=== PATIENT | male | born 1960 | race Caucasian/White ===

== ENCOUNTER 2021-04-05 18:15 | Inpatient (IN) | payer OTHER, SELFPAY ==
[2021-04-05] VITALS (15 sets, daily range): BP systolic 126–193; BP diastolic 79–109; PULSE 53–63; RESP 15–22; TEMP 36.3–36.7; O2SAT 89–98; BMI 26.6; BMI 28.6
--- NOTE | 2021-04-05 18:41 | ECG_ITS ---
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 Measurements Intervals [place] Rate: 62 P: 60 UT: 156 QRS: 2 QRSD: 102 T: 78 QT: 413 QTc: 420 Interpretive Statements SINUS RHYTHM LOW QRS VOLTAGE IN PRECORDIAL LEADS [QRS DEFLECTION < 1.0 mV IN CHEST LEADS] ANTERIOR MYOCARDIAL INFARCTION [40+ ms Q WAVE AND/OR ST/T ABNORMALITY IN V3/V4], POSSIBLY ACUTE ST ELEVATION, CONSIDER LATERAL INJURY [MARKED ST ELEVATION W/O NORMALLY INFLECTED T WAVE IN I/aVL/V5/V6] ACUTE [place] No previous ECG available for comparison Electronically Signed On 04-08-2021 9:08:02 CDT by Meggan Auguste M.D. [id number]
--- NOTE | 2021-04-05 18:41 | XRR_ITS ---
PROCEDURE INFORMATION: Exam: XR Chest Exam date and time: 04/05/2021 6:41 PM Age: 61 years old Clinical indication: Condition or disease; Other: Nstemi TECHNIQUE: Imaging protocol: XR of the chest. Views: 1 view. COMPARISON: No relevant prior studies available. FINDINGS: Lungs: Lungs are clear. Pleural spaces: There is no pleural effusion or pneumothorax. Heart/Mediastinum: Cardiomediastinal contours are unremarkable. There are calcified lymph nodes in the upper mediastinum. Bones/joints: Bones are unremarkable. XR/XR chest 1V portable [id number] IMPRESSION: No acute findings.
--- NOTE | 2021-04-05 18:44 | ED_ITS ---
HPI - Chest Pain General: Chief Complaint: Chest Pain Stated Complaint: CP/high BP Time Seen by Provider: 04/05/21 18:43 Source: patient Mode of arrival: ambulatory Limitations: no limitations History of Present Illness: HPI narrative: 61-year-old male who presents here with chest pain he states it started 2 hours ago. He states that the pain is a pressure type pain right today 3 out of 10 currently states it was an 8 out of 10 earlier. No history of heart disease. Does have a history of smoking high blood pressure and high cholesterol. Denies any radiation of his pain. Denies any nausea or vomiting. He states he was diaphoretic earlier. MD complaint: chest pain Associated symptoms: Deny abdominal pain, dyspnea, fever(s), nausea or vomiting Review of Systems Const: Denies: fever(s), chills, body aches or change in appetite Eyes: Denies: blurry vision or eye discomfort ENMT: Denies: throat pain or dental pain Card: Reports: chest pain Resp: Denies: dyspnea GI: Denies: abdominal pain, nausea, vomiting or diarrhea : Denies: dysuria Musc: Denies: neck pain or back pain Skin/Breast: Denies: rash Neuro: Denies: headache(s) Psych: Denies: depression Crispin/Lymph: Denies: easy bruising All/Imm: Denies: urticaria Physical Exam Const: COMMON NORMALS: no acute distress, patient oriented x3 and healthy appearing HENMT: COMMON NORMALS: normocephalic and atraumatic HEAD & SCALP: normocephalic and atraumatic Eye: COMMON NORMALS: Equal, round and reactive pupils present and EOMs intact bilaterally PUPIL: Yes Equal, round and reactive pupils present Neck/C-Spine: COMMON NORMALS: full ROM and supple Chest: COMMONS NORMALS: normal inspection of the chest and normal palpation of entire chest wall Resp: COMMON NORMALS: normal respiratory effort, No retractions, No use of accessory muscles and clear to auscultation bilaterally AUSCULTATION: clear to auscultation bilaterally Cardio: COMMON NORMALS: regular rate, regular rhythm and No murmurs present (Cardio) RATE: regular rate RHYTHM: regular rhythm GI: COMMON NORMALS: Normal to inspection, nondistended, normoactive bowel sounds present, Soft to palpation, non-tender and no masses PALPATION: Yes Soft to palpation Extremity: COMMON NORMALS: normal to inspection and full ROM Neuro: COMMON NORMALS: patient oriented x3, moves all extremities and no focal motor deficits Psych: COMMON NORMALS: mental status grossly normal, Normal thought process present and cooperative THOUGHT PROCESS: Normal thought process present Skin: COMMON NORMALS: no rashes or lesions noted and no wounds GENERAL SKIN EXAM: no rashes or lesions noted Course Vital Signs: Vital signs: Vital Signs Temperature 98.1 F 04/05/21 18:24 Pulse Rate 61 04/05/21 19:03 Respiratory Rate 22 H 04/05/21 19:03 Blood Pressure 159/95 04/05/21 19:03 Pulse Oximetry 98 04/05/21 19:03 MDM - Chest Pain MDM Narrative: Medical decision making narrative: Patient presents here with an ST elevation PA. Spoke to Dr. Garcia he does come in and take patient to the Account Development Associate. Patient's pain here is improving. His vital signs are stable. Lab Data: Labs: Lab Results 04/05/21 Range/Units 18:43 WBC 10.6 H (4.0-10.0) 10^3/ uL RBC 4.93 (4.1-5.3) 10^6/u L Hgb 14.7 (11.7-16.6) g/dL Hct 45.5 (42.0-52.0) % MCV 92.3 (80-94) fl MCH 29.8 (28.0-34.0) pg MCHC 32.3 (30.0-36.0) g/dL RDW 12.1 (12.1-15.1) % Plt Count 290 (130-400) 10^3/c mm MPV 9.9 (7.4-10.4) fL Neut % (Auto) 64.7 % Lymph % (Auto) 23.1 % [place] % (Auto) 9.3 % Eos % (Auto) 2.2 % Baso % (Auto) 0.4 % Neut # (Auto) 6.86 (1.8-7.7) 10^3/u L Lymph # (Auto) 2.5 (0.8-4.8) 10^3/u L [place] # (Auto) 1.0 H (0.2-0.9) 10^3/u L Eos # (Auto) 0.2 (0.0-0.8) 10^3/u L Baso # (Auto) 0.0 (0.0-0.1) 10^3/u L Nucleated RBC % (a uto) 0 % Nucleated RBCs # 0.0 /100WBC EKG Data^: EKG 1: Attestation: I personally reviewed and interpreted this EKG as follows: EKG interpretation date: 04/05/21 EKG interpretation time: 16:38 Interpretation: nsr hr [address] elevation in v2-v5 stemi qrs 102 qtc 417 Discharge Plan Discharge Patient Disposition: Admitted As Inpatient Clinical Impression: ST elevation myocardial infarction (STEMI) Qualifiers: Involved coronary artery: unspecified coronary artery Qualified Code(s): I21.3 - ST elevation (STEMI) myocardial infarction of unspecified site Condition: Stable Coding Level of Care Code ED Serials Librarian for José Antonio Fwd Exam Comprehensive
[2021-04-05 18:49] LABS: Basophils % 0.4 %; Eosinophils # 0.2 10^3/uL (0.0-0.8); Eosinophils % 2.2 %; Hematocrit 45.5 % (42.0-52.0); Hemoglobin 14.7 g/dL (11.7-16.6); Lymphocytes # 2.5 10^3/uL (0.8-4.8); Lymphocytes % 23.1 %; Mean Corpuscular HGB Conc 32.3 g/dL (30.0-36.0); Mean Corpuscular Hemoglobin 29.8 pg (28.0-34.0); Mean Corpuscular Volume 92.3 fl (80-94); Mean Platelet Volume 9.9 fL (7.4-10.4); Monocytes % 9.3 %; Neutrophils # 6.86 10^3/uL (1.8-7.7); Neutrophils % 64.7 %; Nucleated Red Blood Cells % 0 %; Platelet Count 290 10^3/cmm (130-400); Red Blood Count 4.93 10^6/uL (4.1-5.3); Red Cell Distribution Width 12.1 % (12.1-15.1); White Blood Count 10.6 10^3/uL (4.0-10.0)
[2021-04-05 19:07] LABS: Troponin(5th) Baseline 27 ng/L (0-15)
--- NOTE | 2021-04-05 19:08 | XACV_ITS ---
Exam Room: 1 Ht: 175 cm Wt: 82 kg BSA: 2.01 m2 Gender: Male : 1960 Exam Priority: Routine Indication(s): - Acute coronary syndrome Procedure(s): Procedure Description: Diagnostic procedure Procedure Description: PCI procedure Procedure Description: Drug Eluting Coronary Stent Procedure Description: PTCA Procedure Description: Coronary Angiography Diagnostic Cath Status: Emergency Diagnostic Findings * Left Main has no disease. * Circumflex has no disease. * Right Coronary Artery has no disease. * Proximal Left Anterior Descending: total occlusion, LEANNA: 0 flow. * Coronary angiography shows left dominance. PCI Status: Emergency PCI Indication: Immediate PCI for STEMI Interventional Findings * Proximal Left Anterior Descendin% stenosis treated with a AB TREK 2.50X12 RX BALLOON, NAZ Titus JOCELYNE 3.5X15 RAMSEY, and MDFran CELESTE EUPHORA RX [id number] BALLOON. 0% residual stenosis, LEANNA: 3 flow. Conclusions 1. There is total occlusion coronary artery disease with one vessel disease. 2. Proximal Left Anterior Descending was treated with a Balloon, Drug Eluting Stent, and Balloon. Recommendations * 1-Return to inpatient for close monitoring and routine cath care 2-Risk factor modification for secondary prevention 3-Statin and aspirin 81 mg life--long, if tolerated 4-Patient was pre-loaded with 600 mg of Plavix, continue Plavix 75mg p.o. daily for at least one year. We will assess at the end of one year again to continue if further or not 5-Continue optimal medical management 6-Follow up with Dr. Vásquez in four weeks and your primary care in 10 days. Pressures Phase:Rest AO : 159 / 80 ( 109 ) @ 6:36:00 PM Clinical Evaluation EBL: 5mL-10mL Procedural Details Procedure Consent Obtained. Pre-Procedure Time Out. Identified patient by full name and date of as verbalized by the patient/guarantor. Does the consent match the physician's order: N/A Emergent; Informed Consent not obtained due to time critical life threat. The risks, benefits, and alternatives of sedation and/or procedure were discussed by physician. The patient agrees to continue. Procedure started. [facility] Clinical Fraility Score: 3: Managing Well. Bed Placement Coordinator Indications: ACS <= 24 hours. Chest Pain Symptom Assessment: Typical Angina Symptoms. Cardiovascular Instability: Yes, if yes, Persistant Ischemic Symptoms. Correct patient, site and procedure confirmed by cath team. Current diagnosis: STEMI. PERRLA. Strong, equal hand metal lather bilaterally. Lungs clear x 5 lobes. IV Site on Arrival: 18 gauge in the left anticubital. IV Site on Arrival: 20 gauge in the right anticubital. IV Fluids: 0.9% NaCl at KVO. 100 mL infused prior to catheterization laboratory technician. Pre Procedural Pulses: right radial was 3+. Oxygen started at 2liters/min via nasal canula. right groin was prepped with chloroprep then draped in the usual sterile fashion. right radial was prepped with chloroprep then draped in the usual sterile fashion. Physician notified. Baseline sample Acquired. HR: 58 BPM. Patient's spouse placed in the radiology waiting room. Equipment: 6F - Radial. Cardiac Cath Pack. ACIST Manifold Kit Model BT 2000. Heparinized Saline (2 units/mL), 1000 mL bag. Francesca Manuel RN circulating with Marcie Robison RN. Physician arrived. Physician scrubbed in. Immediate Pre-Procedure Time Out. Correct Patient: Yes; Correct Procedure: Yes; Correct Site: Yes; Correct Patient Position: Yes; Correct Supplies: Yes; Dried Flammable Prep: Yes; Blood Products Available: N/A;. Lidocaine 1% infiltrated to the right radial. Current Diagnosis : STEMI. Arterial access obtained. PCI Indication: STEMI. 6 tristanian XB 3.5 guide catheter was inserted over the exchange wire. [place] guidewire was advanced through the guide catheter to lesion in the mid LAD. Unable to cross lesion, guidewire removed. Guide catheter out. 6 tristanian JL 3.5 guide catheter was inserted over the exchange wire. [place] guidewire was advanced through the guide catheter to lesion in the mid LAD. Unable to cross lesion, guidewire removed. [place] guidewire was advanced through the guide catheter to lesion in the mid LAD. Inflation number : 1 A AB TREK 2.50X12 RX BALLOON was prepped and advanced across the Prox LAD , then inflated to 12 EHSAN for 0:15 seconds. Balloon out. Inflation Number : 2 A MDT R JOCELYNE 3.5X15 RAMSEY -Lot Number# [id number] was prepped and advanced across the Prox LAD. The stent was deployed at 16 EHSAN for 0:28 seconds. Exp. 08/04/2022. Results checked. Stent balloon out over wire. Inflation number : 3 A MDT NC EUPHORA RX 4.35Q10SL BALLOON was prepped and advanced across the Prox LAD , then inflated to 10 EHSAN for 0:14 seconds. Inflation number: 4 The MDT NC EUPHORA RX [id number] BALLOON was reinflated across the Prox LAD, to 12 EHSAN for 0:18 seconds. Results checked. Balloon and wire out. Guide catheter out over the exchange wire. A 5 tristanian JR4 catheter in over the exchange wire. Multiple views taken of right coronary artery. Catheter removed over the standard wire. ACT drawn. Results 181 seconds. Therapeutic limits - pre-heparin administration 90-150 seconds and monitoring heparin during a vascular procedure >250 seconds. PCI Indication : Immediate PCI for STEMI. A TR Band was successful obtaining hemostatsis at the Right Radial artery insertion site. Post Procedure: Pulses reassessed and unchanged. TR band placed. Hemostasis obtained. PERRLA. Strong, equal hand metal lather bilaterally. No VTE prophylaxis required. Medication's Wasted: Lidocaine 1% = 15 mL. Medication's Wasted: Nitro = 50 mg. Total IV fluids: 63 mL. Post-op diagnosis: Proximal LAD lesion. Complications: none. Estimated blood loss: 5mL-10mL. Procedure completed. Patient transferred by wheelchair to 1st floor. Vital chart was stopped. Access Site Site: Right Radial artery Sheath Size: 6 Fr Hemostasis Method: TR Band Hemostasis Success: Successful Procedure Medications Start: 7:23 PM Stop: 7:23 PM Medication: Versed Amount: 1 mg Route: I.V. Start: 7:23 PM Stop: 7:23 PM Medication: Fentanyl Amount: 50 mcg Route: I.V. Start: 7:25 PM Stop: 7:25 PM Medication: Versed Amount: 1 mg Route: I.V. Start: 7:25 PM Stop: 7:25 PM Medication: Fentanyl Amount: 50 mcg Route: I.V. Start: 7:28 PM Stop: 7:28 PM Medication: Heparin Amount: 4000 units Route: I.V. Start: 7:32 PM Stop: 7:32 PM Medication: Aggrastat 12.5 mg/250 mL Amount: 41 ml Route: I.V. bolus Start: 7:32 PM Stop: 7:32 PM Medication: Aggrastat 12.5 mg/250 mL Amount: 14.8 ml/hr Route: I.V. drip Start: 7:35 PM Stop: 7:35 PM Medication: Versed Amount: 1 mg Route: I.V. Start: 7:59 PM Stop: 7:59 PM Medication: Heparin Amount: 3000 units Route: I.V. I, the attending physician, have reviewed and verified all procedure medications. Yes, all medications given per verbal order History/Risk Factors Hypertension: Yes Dyslipidemia: No Peripheral Arterial Disease (PAD): No Myocardial Infarction (AL): No Obesity: No Renal Disease: No Tobacco Use: Current/Recent(w/in 1 year) Prior Interventions PCI: No CABG: No Valve Surgery: No Report Signatures Finalized by Elidia Vásquez MD on 04/18/2021 10:38 PM
--- NOTE | 2021-04-05 19:17 | PM.HP ---
Providers/Chief Complaint Primary Care Provider: Sid Cartagena DO Chief Complaint: CP/high BP History of Present Illness Tera Chirinos is a 61 year old male past medical history significant for hypertension, continuous tobacco abuse for the last few days been noticing off and on chest pressure upon exertion did not pay much attention. Nearly 2 hours ago he started having constant chest pain not to the extent that he was not able to breathe therefore he decided to come to the ER. Twelve-lead EKG was history of anterolateral ST elevation it is the reason we have been alerted. I saw the patient along our nursing staff in the emergency room he appeared to be stable vital mott slightly bradycardic he was given 600 mg of Plavix and 4000 units of heparin. Patient has been explained in detail all risk benefit and alternative for the procedure including urgent emergent bypass surgery, vascular injury leading to vascular surgery, major minor bleed, stroke, contrast-induced nephropathy, hematoma, infection pseudoaneurysm. He is a good candidate for dual antiplatelet therapy. He denies any history of bleeding disorders. We will proceed with urgent angiogram and PCI if indicated. Review of Systems Const: Denies: fever(s), chills, body aches or change in appetite Eyes: Denies: blurry vision or eye discomfort ENMT: Denies: throat pain or dental pain Card: Reports: chest pain Resp: Denies: dyspnea GI: Denies: abdominal pain, nausea, vomiting or diarrhea : Denies: dysuria Musc: Denies: neck pain or back pain Skin/Breast: Denies: rash Neuro: Denies: headache(s) Psych: Denies: depression Crispin/Lymph: Denies: easy bruising All/Imm: Denies: urticaria Medications/Allergies Home Medications Medication Instructions Recorded Confirmed Last Taken Type Anoro Ellipta See Rx Instructions .ROUTE .COMPLEX 04/05/21 04/05/21 04/05/21 History albuterol sulfate 2 puff INHALATION Q4H PRN 04/05/21 04/05/21 04/05/21 History aspirin 81 mg PO PRN 04/05/21 04/05/21 04/05/21 History sertraline 25 mg PO DAILY 04/05/21 04/05/21 04/05/21 History atorvastatin 80 mg PO BEDTIME #90 tab 04/06/21 Unknown Rx carvedilol [Coreg] 3.125 mg PO BID #60 tab 04/06/21 Unknown Rx clopidogrel 75 mg PO DAILY #90 tab 04/06/21 Unknown Rx furosemide [Lasix] 20 mg PO QAM #30 tab 04/06/21 Unknown Rx lisinopril 2.5 mg PO DAILY #30 tab 04/06/21 Unknown Rx pantoprazole [Protonix] 40 mg PO DAILY #90 tab 04/06/21 Unknown Rx potassium chloride 10 meq PO DAILY #30 tab 04/06/21 Unknown Rx Allergies Allergy/AdvReac Type Severity Reaction Status Date / Time No Known Allergies Allergy Unverified 04/05/21 19:03 PFSH Acute PFSH: Medical History (Updated 04/07/21 @ 20:09 by Elidia Vásquez MD) Hypertension Tobacco abuse Vitals/I&O/Wt Last Vital Signs Temp 98.1 F 04/05/21 18:24 Pulse 61 04/05/21 19:03 Resp 22 H 04/05/21 19:03 BP 159/95 04/05/21 19:03 Pulse Ox 98 04/05/21 19:03 Weight last 48 hrs Weight 180 lb Physical Exam Narrative: EXAM NARRATIVE: GENERAL: Patient is alert, awake and oriented x3. NECK: No jugular vein distension. HEENT: No cyanosis. No icterus. No pallor. HEART: Regular S1 and S2. No murmur, rub or gallop. LUNGS: Clear to auscultate bilaterally. ABDOMEN: Soft, nontender and nondistended. Positive bowel sounds. No guarding, rebound or tenderness. CENTRAL NERVOUS SYSTEM: Grossly nonfocal. EXTREMITIES: Lower extremities without edema bilaterally. Data : 04/06/21 04:25 04/06/21 04:25 A&P Assessment and plan (1) STEMI (ST elevation myocardial infarction): As defined above patient is going through acute coronary syndrome/ST elevation DE at this point we will proceed with coronary angiogram and percutaneous angioplasty if needed. Status: Acute (2) Tobacco abuse: Advised quitting smoking Status: Acute (3) Hypertension: Will optimize medicine Status: Acute Attestations Medical Necessity Statement*: Patient require continuation hospitalization for above defined care Coding Level of Care Code New Pt Acute Cryptographic Clerk for Chg Fwd Patient Type New History Detailed Exam Detailed Medical Decision Making Moderate Complexity Diagnoses STEMI (ST elevation myocardial infarction) I21.3 Tobacco abuse Z72.0 Hypertension I10
[2021-04-05 19:18] LABS: Alanine Aminotransferase 17 U/L (0-41); Albumin Level 4.4 g/dL (3.5-5.2); Alkaline Phosphatase 61 IU/L (40-130); Aspartate Amino Transferase 19 U/L (0-40); Blood Urea Nitrogen 17 mg/dL (8-23); Carbon Dioxide 26 mmol/L (22-29); Chloride 101 mmol/L (98-107); Creatine Phosphokinase 178 U/L (39-308); Creatinine Clr Calc Pharmacy 81.3354; Globulin 2.4 g/dL (1.3-4.6); Glomerular Filtration Rate 75.7 mL/min (90-130); Glucose 103 mg/dL (65-115); Osmolality Calculated 290 mOsm/kg (285-295); Sodium 139 mmol/L (136-145); Total Bilirubin 0.3 mg/dL (0.15-1.2); Total Protein 6.8 g/dL (6.6-8.7)
--- NOTE | 2021-04-05 20:59 | ECG_ITS ---
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 Measurements Intervals [place] Rate: 56 P: 33 MN: 149 QRS: 26 QRSD: 115 T: 89 QT: 468 QTc: 454 Interpretive Statements SINUS BRADYCARDIA WITH OCCASIONAL VENTRICULAR PREMATURE COMPLEXES ANTEROLATERAL MYOCARDIAL INFARCTION , PROBABLY RECENT [40+ ms Q WAVE IN I/aVL/V3-V6] ACUTE MD Compared to ECG 04/05/2021 18:38:29 Ventricular premature complex(es) now present Sinus rhythm no longer present ST (T wave) deviation no longer present Myocardial infarct finding still present Electronically Signed On 04-08-2021 10:42:59 CDT by Meggan Auguste M.D. [id number]
--- NOTE | 2021-04-05 21:14 | PC.NURSE ---
Bedside report from shellfish processing laborer received. Patient is alert and oriented and VSS on room air. TR band to right wrist with 15 mL air. Aggrastat running at 14.8 ml/hr and ordered to shut off at 2130. Patient has ST elevation on monitor. Dr. Fahad caballero. Ordered to get baseline EKG. Patient educated on post-cath activity restrictions and verbalized understanding.
[2021-04-05] MEDS: atorvastatin 40 mg Tablet 80 MG PO (21:35)
--- NOTE | 2021-04-05 23:30 | PC.NURSE ---
Began removing air from TR band at 2130. TR band removed at 2300. Dressing applied. No bleeding or hematoma noted. Radial pulse strong, VSS. Skin color and temp WNL. Aggrastat drip stopped at 2130 per order.
[2021-04-06] VITALS (12 sets, daily range): BP systolic 122–144; BP diastolic 82–90; PULSE 57–72; RESP 14–21; TEMP 36.6–36.7; O2SAT 89–95
--- NOTE | 2021-04-06 00:41 | ECG_ITS ---
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 Measurements Intervals [place] Rate: 61 P: 135 SD: 155 QRS: 179 QRSD: 97 T: 90 QT: 451 QTc: 455 Interpretive Statements ECTOPIC ATRIAL RHYTHM WITH OCCASIONAL VENTRICULAR PREMATURE COMPLEXES ANTEROLATERAL MYOCARDIAL INFARCTION , PROBABLY RECENT [40+ ms Q WAVE IN I/aVL/V3-V6] ACUTE [place] Compared to ECG 04/05/2021 22:14:06 Ectopic atrial rhythm now present Sinus bradycardia no longer present Myocardial infarct finding still present Electronically Signed On 04-08-2021 10:42:46 CDT by Meggan Auguste M.D. [id number]
--- NOTE | 2021-04-06 02:21 | PC.NURSE ---
Patient c/o of leg cramps. Patient states that at home he takes potassium at home for them or eat bananas. Patient given banana per his request.
[2021-04-06] MEDS: HYDROcodone-acetaminophen 5-325 mg Tablet 1 TAB PO (02:33)
[2021-04-06 04:52] LABS: Basophils % 0.2 %; Eosinophils # 0.1 10^3/uL (0.0-0.8); Eosinophils % 0.9 %; Hematocrit 40.6 % (42.0-52.0); Hemoglobin 13.3 g/dL (11.7-16.6); Lymphocytes # 2.1 10^3/uL (0.8-4.8); Lymphocytes % 15.5 %; Mean Corpuscular HGB Conc 32.8 g/dL (30.0-36.0); Mean Corpuscular Hemoglobin 29.9 pg (28.0-34.0); Mean Corpuscular Volume 91.2 fl (80-94); Mean Platelet Volume 10.3 fL (7.4-10.4); Monocytes # 1.2 10^3/uL (0.2-0.9); Monocytes % 8.9 %; Neutrophils # 9.78 10^3/uL (1.8-7.7); Neutrophils % 74.1 %; Nucleated Red Blood Cells % 0 %; Platelet Count 236 10^3/cmm (130-400); Red Blood Count 4.45 10^6/uL (4.1-5.3); Red Cell Distribution Width 12.2 % (12.1-15.1); White Blood Count 13.2 10^3/uL (4.0-10.0)
[2021-04-06 05:14] LABS: Anion Gap 14.9 (5-19); Blood Urea Nitrogen 16 mg/dL (8-23); Calcium 8.4 mg/dL (8.5-10.5); Carbon Dioxide 24 mmol/L (22-29); Chloride 102 mmol/L (98-107); Glomerular Filtration Rate 75.7 mL/min (90-130); Glucose 124 mg/dL (65-115); Osmolality Calculated 287 mOsm/kg (285-295); Potassium 3.9 mmol/L (3.5-5.1); Sodium 137 mmol/L (136-145)
[2021-04-06 06:21] LABS: Troponin T (5th) Once > 10000 ng/L (0-15)
--- NOTE | 2021-04-06 08:53 | PC.CHAP ---
Pastoral Care Encounter/Spiritual Assessment Type of Contact [] Declined uat tester visit [] Patient/Family/Request visit [] Outpatient visit [] Follow-up visit [] Physician referral [] Code/Alert [x] Routine visit [] Staff referral [] Actively dying [] Patient sleeping [] Family support [] [] Out of room [] Palliative care [] [] Receiving care in room [] Pre-surgical visit [] Trauma [] Long length of stay [] ICU visit [] Other: Relational/Emotional Strength [x] Patient feels connected with others/family/visitors/staff [] Distress [] Loneliness/isolation [] Abandonment Spirituality of Patient [x] Person of [place] [x] Attends Christianity of their [place] [x] Believes in Prayer [] Reads Bible or Hinduism materials [] There are Spiritual issues to be addressed Buckshot Swage Operator Interventions [x] Prayer [x] Active listening [x] Non-anxious presence [x] Spiritual/emotional support [] Crisis/trauma care [] Spiritual counseling [] Bereavement support [] Provided bereavement packet [] Provided Bible/devotional materials [] Provided toy/stuffed animal, coloring book to patient or family member [] Provided Communion [] Anointing/Elizabeth [] Salvation [x] Completed spiritual assessment [] Other: Impact on Illness or Injury [] Angry [] Fearful [] Anxious [] Often cries [] Exhaustion [] Unable to work [] Unable to attend gnosticist [] Unable to walk/stand [] Unable to read [] Unable to drive [] Unable to eat/drink [] Unable to sleep [] Unable to be with family [] Patient intubated [] Other: Summary Pt had heart attack yesterday afternoon. Feeling better and waiting to see the doctor this morning to determine treatment course. Time spent with patient 10m
[2021-04-06] MEDS: sertraline 50 mg Tablet 25 MG PO (09:14)
[2021-04-06] MEDS: clopidogrel 75 mg Tablet PO (09:14)
[2021-04-06] MEDS: dilTIAZem ER (24HR) 240 mg Capsule PO (09:14)
[2021-04-06] MEDS: pneumococcal (23 valent) SDV 0.5 mL IM (09:25)
--- NOTE | 2021-04-06 09:30 | P.DS_ITS ---
Discharge Providers Date of Admission: 04/05/21 20:15 Date of Discharge: April 06, 2021 Attending Provider at Admission: Elidia Vásquez MD Attending Provider at Discharge: Elidia Vásquez MD Primary Care Provider: Sid Cartagena DO Reason for Visit 2 Reason for Visit: CP/high BP Hospital Course Hospital Course 61-year-old male presented with ST elevation ID of anterolateral wall of the left ventricle. He was taken to the [facility]. Due to difficult anatomy there was some delay however were able to cross the occluded proximal LAD lesion. It was treated with balloon angioplasty followed by drug-eluting stent postdilated with noncompliant balloon. Excellent angiographic result with LEANNA-3 flow was achieved. Rest of the vessel did not show any significant stenosis. Postoperative care remains uncomplicated. Medicine was optimized left ventricle ejection fraction by echocardiogram was moderately reduced 40%. Today patient say he would like to go home and would not like to stay in the hospital because of the Covid patient. Since he is doing fine from cardiovascular perspective right wrist wound looks good we will discharge him. Advised to continue taking Plavix for at least 1 year for the plan will be advised after that. Advised to quit smoking. Physical Exam Narrative: EXAM NARRATIVE: GENERAL: Patient is alert, awake and oriented x3. NECK: No jugular vein distension. HEENT: No cyanosis. No icterus. No pallor. HEART: Regular S1 and S2. No murmur, rub or gallop. LUNGS: Clear to auscultate bilaterally. ABDOMEN: Soft, nontender and nondistended. Positive bowel sounds. No guarding, rebound or tenderness. CENTRAL NERVOUS SYSTEM: Grossly nonfocal. EXTREMITIES: Lower extremities without edema bilaterally. 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 echo complete * [id number] Routine Ultrasound 04/06/21 20:10 Taken Labs from last 24 hours 04/06/21 04/06/21 04/06/21 04:25 04:25 04:25 WBC 13.2 H RBC 4.45 Hgb 13.3 Hct 40.6 L MCV 91.2 MCH 29.9 MCHC 32.8 RDW 12.2 Plt Count 236 MPV 10.3 Neut % (Auto) 74.1 Lymph % (Auto) 15.5 Latimer % (Auto) 8.9 Eos % (Auto) 0.9 Baso % (Auto) 0.2 Neut # (Auto) 9.78 H Lymph # (Auto) 2.1 Latimer # (Auto) 1.2 H Eos # (Auto) 0.1 Baso # (Auto) 0.0 Nucleated RBC % (a uto) 0 Nucleated RBCs # 0.0 Sodium 137 Potassium 3.9 Chloride 102 Carbon Dioxide 24 Anion Gap 14.9 BUN 16 Creatinine 1.0 GFR Calculation 75.7 L Glucose 124 H Calculated Osmolal ity 287 Calcium 8.4 L Total Bilirubin AST ALT Alkaline Phosphata se Creatine Kinase Troponin T Gen 5 n g/L > 28526 H* Troponin T Baselin e Total Protein Albumin Globulin 04/05/21 04/05/21 04/05/21 18:43 18:43 18:43 WBC 10.6 H RBC 4.93 Hgb 14.7 Hct 45.5 MCV 92.3 MCH 29.8 MCHC 32.3 RDW 12.1 Plt Count 290 MPV 9.9 Neut % (Auto) 64.7 Lymph % (Auto) 23.1 Latimer % (Auto) 9.3 Eos % (Auto) 2.2 Baso % (Auto) 0.4 Neut # (Auto) 6.86 Lymph # (Auto) 2.5 Latimer # (Auto) 1.0 H Eos # (Auto) 0.2 Baso # (Auto) 0.0 Nucleated RBC % (a uto) 0 Nucleated RBCs # 0.0 Sodium 139 Potassium 4.0 Chloride 101 Carbon Dioxide 26 Anion Gap 16.0 BUN 17 Creatinine 1.0 GFR Calculation 75.7 L Glucose 103 Calculated Osmolal ity 290 Calcium 9.0 Total Bilirubin 0.3 AST 19 ALT 17 Alkaline Phosphata se 61 Creatine Kinase 178 Troponin T Gen 5 n g/L Troponin T Baselin e 27 H Total Protein 6.8 Albumin 4.4 Globulin 2.4 Vitals: Last Vital Signs Temp 98.1 F 04/06/21 07:56 Pulse 59 L 04/06/21 07:56 Resp 18 04/06/21 07:56 BP 136/89 04/06/21 07:56 Pulse Ox 93 04/06/21 07:56 Discharge Plan Discharge Patient Disposition: Home Condition: Stable Prescriptions: New atorvastatin 40 mg Tablet 80 mg PO BEDTIME Qty: 90 RF: 4 clopidogrel 75 mg Tablet 75 mg PO DAILY Qty: 90 RF: 3 Coreg 3.125 mg tablet 3.125 mg PO BID Qty: 60 RF: 3 Lasix 20 mg tablet 20 mg PO QAM Qty: 30 RF: 2 potassium chloride 20 mEq tablet extended release 10 meq PO DAILY Qty: 30 RF: 3 Protonix 40 mg tablet,delayed release (DR/EC) 40 mg PO DAILY Qty: 90 RF: 2 lisinopril 2.5 mg tablet 2.5 mg PO DAILY Qty: 30 RF: 3 Continued sertraline 25 mg tablet 25 mg PO DAILY RF: 0 albuterol sulfate 90 mcg/actuation HFA aerosol inhaler 2 puff INHALATION Q4H PRN (Reason: Shortness Of Breath) RF: 0 Anoro Ellipta 62.5-25 mcg/actuation blister with device See Rx Instructions .ROUTE .COMPLEX RF: 0 aspirin 81 mg Tablet,Delayed Release (Dr/Ec) 81 mg PO PRN RF: 0 Discontinued diltiazem HCl 240 mg capsule,extended release 24hr 240 mg PO DAILY RF: 0 Discharge Orders: Discharge Order (Routine); Ordered 04/06/21 Ordered By: Elidia Vásquez Referrals: Elidia Vásquez MD [Physician] - (Please follow-up with Dr. Vásquez on at 3:45P.M. If you have questions or reschedule. Please call ) Sharon Rodríguez FNP [Nurse Practitioner] - (Please follow-up with Sharon Rodríguez on at 12:45P.M. If you have any questions or need to reschedule. Please call ) Sid Cartagena, [Primary Care Provider] - 4-7 days (Please follow-up with Dr. Cartagena on at 1:50P.M. If you have any questions or need to reschedule. Please call ) Discharge Diet: Cardiac, Low Salt and Low Cholesterol Discharge Activity: Increase activity as tolerated Patient Instructions: Lisinopril (By mouth), Furosemide (By mouth), Potassium Chloride (By mouth), Atorvastatin (By mouth), Carvedilol (By mouth), Clopidogrel (By mouth), Pantoprazole (By mouth), Left Heart Catheterization (DC), Coronary Angioplasty (DC), Opioid Safety, Post Angiogram Home Care Instructions Activity Restrictions/Additional Instructions: Follow-up with Sharon Rodríguez in 7 days. Follow-up with Dr. Vásquez in 4 weeks. Return to work will be decided after 7-day visit to Sharon Rodríguez. Most likely return to work will be in 2 weeks. Discharge Attestations Time Spent in Discharge Care*: greater than 30 min Specific Discharge Activities: educating patient Quality Metrics Clinical Quality Measures During this hospital stay, did patient experience: AMI Clinical Trial Participant: No Contraindication to aspirin (AMI): Aspirin given Contraindication to statin: Statin prescribed Coding Level of Care Code Established Pt Acute Chg FW DC note Patient Type Established History Detailed Exam Detailed Medical Decision Making Moderate Complexity
--- NOTE | 2021-04-06 11:05 | PC.NURSE ---
Discharge Note Patient discharged to Home via private vehicle accompanied by spouse. Discharge instructions reviewed with patient and/or product representative. Mobile pharmacy medications and/or prescriptions provided. Belongings/home medications returned.
--- NOTE | 2021-04-06 11:05 | PC.NURSE ---
Discharge Note Patient discharged to [] via [] accompanied by []. 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 Mobile pharmacy medications and/or prescriptions provided. Belongings/home medications returned.
--- NOTE | 2021-04-06 20:10 | USCV_ITS ---
Tera Chirinos Age: 61 Gender: M : 1960 Exam Date: 04/06/2021 07:20 Ordering Phys: Elidia Vásquez MD ([email or web address]) Technologist: Chuck Kelsey Exam Location: [facility] [place] Indication: NSTEMI BP: 134 / 84 HR: 60 Rhythm: Sinus Technical Quality: Good MEASUREMENTS (Male / Female) Normal Values 2D ECHO LV Diastolic Diameter PLAX 3.1 cm 4.2 - 5.9 / 3.9 - 5.3 cm LV Systolic Diameter PLAX 2.3 cm IVS Diastolic Thickness 1.1 cm 0.6 - 1.0 / 0.6 - 0.9 cm IVS Systolic Thickness 1.2 cm LVPW Diastolic Thickness 1.1 cm 0.6 - 1.0 / 0.6 - 0.9 cm LVPW Systolic Thickness 1.5 cm LVOT Diameter 2.1 cm LV Ejection Fraction 2D Teich 53.9 % LV Ejection Fraction MOD 2C 58.3 % LV Ejection Fraction 2C AL 56.9 % LA Diameter 3.1 cm LA Width 3.8 cm LA Height 6.2 cm RA Width 3.5 cm RA Height 5.0 cm DOPPLER AV Peak Velocity 156.0 cm/s LVOT Peak Velocity 117.0 cm/s AV Area Cont Eq vti 3.1 cm squared AV Area Cont Eq pk 2.5 cm squared MV Area PHT 5.0 cm squared Mitral E to A Ratio 0.7 MV E' Velocity 37.5 cm/s Mitral E to MV E' Ratio 11.2 Mitral E to LV E' Lateral Ratio 12.2 Mitral E to LV E' Septal Ratio 10.3 TR Peak Velocity 308.0 cm/s TR Peak Gradient 37.9 mmHg PV Peak Velocity 74.0 cm/s FINDINGS Left Ventricle Normal left ventricular cavity size. Moderately decreased left ventricular systolic function. Left ventricular ejection fraction is estimated at 40 %. There appeared to be mid to distal anterior and apical wall akinesis. Grade I/IV diastolic dysfunction (abnormal relaxation filling pattern), normal to mildly elevated filling pressures. Right Ventricle The right ventricle is normal in size and function. Right Atrium The right atrium is normal in size. Left Atrium The left atrium is normal in size. Mitral Valve Structurally normal mitral valve without significant stenosis or prolapse. There is no mitral regurgitation. Aortic Valve Moderate aortic valve calcification. No aortic valve stenosis. Mild aortic valve regurgitation. Tricuspid Valve Structurally normal tricuspid valve without significant stenosis or regurgitation. Pulmonary artery systolic pressure is normal. Pulmonic Valve Structurally normal pulmonic valve without significant stenosis. There is no pulmonic regurgitation. Pericardium Normal pericardium without effusion. Aorta Normal ascending aorta dimension. CONCLUSIONS 1-Normal left ventricular cavity size. Moderately decreased left ventricular systolic function. Left ventricular ejection fraction is estimated at 40 %. There appeared to be mid to distal anterior and apical wall akinesis. Grade I/IV diastolic dysfunction (abnormal relaxation filling pattern), normal to mildly elevated filling pressures. 2-Moderate aortic valve calcification. No aortic valve stenosis. Mild aortic valve regurgitation. 3-No other significant valve abnormalities. 4-Right atrial pressure is around 5 mm of mercury. 5-There are no prior echocardiogram studies to compare. Elidia Vásquez MD (Electronically Signed) Final Date: 06 April 2021 14:46 S
--- NOTE | 2021-04-07 09:00 | PC.SOCIAL ---
discharge follow up call made. patient picked up new medications from the pharmacy, taking as prescribed. patient aware of all follow up appointments.
--- NOTE | 2021-04-09 18:05 | PC.RESP ---
SMOKING CESSATION INFORMATION SENT TO PATIENT.
== END 2021-04-06 11:05 | disposition home or self-care (01) | DRG 247 ==
LOC: ER 18:46 → CCL 19:43 → CSU 20:23
PROVIDERS: Family Medicine; Admitting Provider Internal Medicine Cardiovascular Disease; Emergency Provider Emergency Medicine; PCP Electrodiagnostic Medicine; Visit Provider Internal Medicine Cardiovascular Disease
PROC: 027034Z Dilation of Coronary Artery, One Artery with Drug-eluting Intraluminal Device, Percutaneous Approach (ICD-10-PCS; principal; 2021-04-05 19:00)
PROC: 027034Z Dilation of Coronary Artery, One Artery with Drug-eluting Intraluminal Device, Percutaneous Approach (ICD-10-PCS; 2021-04-05 19:00)
DX: I21.09 ST elevation (STEMI) myocardial infarction involving other coronary artery of anterior wall (principal); I10 Essential (primary) hypertension; Z72.0 Tobacco use
CPT/HCPCS: 36415; 71045; 80048; 80053; 82550; 84484; 85025; 85347; 90471; 90732; 93005; 93306; 93454; 96361; 96365; 96375; 99285; C1725; C1769; C1874; C1887; C1894; C9600; J1644; J2250; J3010; J3246; J3490; Q9967

== ENCOUNTER → 2021-04-13 14:15 | Outpatient (BNVA) | payer OTHER, SELFPAY | PROVIDERS: PCP Electrodiagnostic Medicine; Visit Provider Nurse Practitioner Family | DX: I25.119 Atherosclerotic heart disease of native coronary artery with unspecified angina pectoris (principal); I73.9 Peripheral vascular disease, unspecified; Z09 Encounter for follow-up examination after completed treatment for conditions other than malignant neoplasm; I10 Essential (primary) hypertension; F17.200 Nicotine dependence, unspecified, uncomplicated | CPT/HCPCS: 80048; 85025 ==

== ENCOUNTER → 2021-05-18 13:07 | Outpatient (BNVA) | payer OTHER, SELFPAY | PROVIDERS: PCP Electrodiagnostic Medicine; Visit Provider Internal Medicine Cardiovascular Disease | DX: I25.119 Atherosclerotic heart disease of native coronary artery with unspecified angina pectoris (principal) | CPT/HCPCS: 80048; 83880; 85025 ==

== ENCOUNTER 2021-05-20 08:50 | Outpatient (CLI) | payer OTHER, SELFPAY ==
--- NOTE | 2021-05-20 09:30 | USCV_ITS ---
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 Near normal PVR waveforms CONCLUSIONS Features of mild peripheral arterial disease bilaterally possibly involving the distal vessels. Dr Rosemary Kline MD [facility] (Electronically Signed) Final Date: 20 May 2021 22:57 S
== END 2021-05-20 08:51 | disposition home or self-care (01) ==
LOC: RAD 08:51
PROVIDERS: PCP Electrodiagnostic Medicine; Visit Provider Nurse Practitioner Family
DX: I25.119 Atherosclerotic heart disease of native coronary artery with unspecified angina pectoris (principal); I73.9 Peripheral vascular disease, unspecified
CPT/HCPCS: 93923

== ENCOUNTER → 2021-06-29 13:45 | Outpatient (BNVA) | payer OTHER, SELFPAY | PROVIDERS: PCP Electrodiagnostic Medicine; Visit Provider Internal Medicine Cardiovascular Disease | DX: I25.119 Atherosclerotic heart disease of native coronary artery with unspecified angina pectoris (principal); I50.23 Acute on chronic systolic (congestive) heart failure; I25.10 Atherosclerotic heart disease of native coronary artery without angina pectoris; I11.0 Hypertensive heart disease with heart failure | CPT/HCPCS: 80048; 85025 ==

== ENCOUNTER → 2021-07-15 08:11 | Outpatient (BNVA) | payer OTHER, SELFPAY | PROVIDERS: PCP Electrodiagnostic Medicine; Visit Provider Internal Medicine Critical Care Medicine | DX: Z20.822 Contact with and (suspected) exposure to COVID-19 (principal); J44.9 Chronic obstructive pulmonary disease, unspecified | CPT/HCPCS: 87635 ==

== ENCOUNTER 2021-07-20 14:17 | Outpatient (CLI) | payer OTHER, SELFPAY ==
--- NOTE | 2021-07-20 15:00 | CT_ITS ---
WS: [id number] LDCT LUNG CANCER SCREENING TECHNIQUE: Noncontrast CT of the chest with coronal and sagittal reformatted images. CLINICAL INFORMATION: Lung cancer screeni COMPARISON: None. DLP: 57.35 mGy.cm DIvol: 1.[address] scans at [facility] use at least one of these dose optimization techniques: automat ed exposure control; mA and/or kV adjustment per patient size (includes targeted exams where dose is matched to clinical indication); or iterative reconstruction. FINDINGS: Moderate chronic emphysematous changes. No focal pneumonia or pleural fluid. No suspicious pulmonary parenchymal abnormalities. A few calcified granulomas. Calcified mediastinal and hilar lymph nodes. C oronary calcification. Coronary stent. No axillary lymphadenopathy. Adrenal glands are normal. Cholelithiasis. Mild thoracic kyphosis. Hypertrophic changes thoracic spin e. CT/CT lung screening [id number] IMPRESSION: LUNG-RADS: 1-Negative FOLLOW UP: 12 Month: Continue annual screening with LDCT
== END 2021-07-20 14:18 | disposition home or self-care (01) ==
LOC: RAD 14:18
PROVIDERS: PCP Electrodiagnostic Medicine; Visit Provider Internal Medicine Critical Care Medicine
DX: Z12.2 Encounter for screening for malignant neoplasm of respiratory organs (principal); Z72.0 Tobacco use
CPT/HCPCS: 71271

== ENCOUNTER 2021-07-21 12:33 | Outpatient (CLI) | payer OTHER, SELFPAY ==
--- NOTE | 2021-07-21 13:38 | PFTS_ITS ---
Date of Study:07/21/21 Date of Dictation: MECHANICS: Forced vital capacity (FVC) is normal. Forced expiratory volume in one second (FEV1) is reduced. FEV1/FVC is reduced. FLOW VOLUME LOOP: Reduced flow at all lung volumes with scooping. LUNG VOLUMES: Total lung capacity (TLC) is normal. Residual volume (RV) is normal. DIFFUSING CAPACITY FOR CARBON MONOXIDE: Mildly reduced. INTERPRETATION: The postbronchodilator spirometry is consistent with moderate airflow obstruction. There is no significant postbronchodilator response. Lung volumes are normal. Gas exchange (DLCO) is mildly reduced. MTDD
== END 2021-07-21 12:34 | disposition home or self-care (01) ==
LOC: RT 12:35
PROVIDERS: PCP Electrodiagnostic Medicine; Visit Provider Internal Medicine Critical Care Medicine
DX: J44.9 Chronic obstructive pulmonary disease, unspecified (principal)
CPT/HCPCS: 94060; 94726; 94729

== ENCOUNTER → 2021-12-23 10:55 | Outpatient (BNVA) | payer OTHER, SELFPAY | PROVIDERS: PCP Electrodiagnostic Medicine; Visit Provider Internal Medicine Cardiovascular Disease | DX: I25.119 Atherosclerotic heart disease of native coronary artery with unspecified angina pectoris (principal); I50.23 Acute on chronic systolic (congestive) heart failure; R06.02 Shortness of breath; I25.5 Ischemic cardiomyopathy; I42.0 Dilated cardiomyopathy; I50.33 Acute on chronic diastolic (congestive) heart failure; I50.20 Unspecified systolic (congestive) heart failure | CPT/HCPCS: 80048; 83880 ==

== ENCOUNTER 2022-02-04 13:44 | Outpatient (CLI) | payer OTHER, SELFPAY ==
--- NOTE | 2022-02-04 14:15 | USCV_ITS ---
Tera Chirinos Age: 61 Gender: M : 1960 Exam Date: 02/04/2022 14:07 Ordering Phys: Rosemary Kline MD ([email or web address]) Technologist: LAMINE [place] [facility] [place]ication: CARDIOMYOPATHY/ CHRONIC HEART FAILURE BP: 148 / 88 HR: 56 Rhythm: Sinus Technical Quality: Adequate MEASUREMENTS (Male / Female) Normal Values 2D ECHO LV Diastolic Diameter PLAX 5.0 cm 4.2 - 5.9 / 3.9 - 5.3 cm LV Systolic Diameter PLAX 3.5 cm IVS Diastolic Thickness 1.5 cm 0.6 - 1.0 / 0.6 - 0.9 cm IVS Systolic Thickness 1.7 cm LVPW Diastolic Thickness 1.2 cm 0.6 - 1.0 / 0.6 - 0.9 cm LVPW Systolic Thickness 1.4 cm LVOT Diameter 2.0 cm LV Ejection Fraction 2D Teich 55.7 % LV Ejection Fraction MOD 2C 43.3 % LV Ejection Fraction 2C AL 45.5 % LA Diameter 3.6 cm LA Width 3.4 cm LA Height 4.7 cm RA Width 3.0 cm RA Height 4.8 cm Aorta at Sinotubular Diameter 2.7 cm IVC Diameter 1.5 cm M-MODE Aortic Annulus Diameter 2.9 cm LA Ao Ratio MM 1.2 MV E Point Septal Separation 0.5 cm DOPPLER AV Peak Velocity 157.0 cm/s LVOT Peak Velocity 117.0 cm/s AV Area Cont Eq vti 2.4 cm squared AV Area Cont Eq pk 2.4 cm squared MV Peak Velocity 110.0 cm/s MV Area PHT 3.1 cm squared Mitral E to A Ratio 0.7 MV E' Velocity 33.0 cm/s Mitral E to MV E' Ratio 12.5 Mitral E to LV E' Lateral Ratio 13.4 Mitral E to LV E' Septal Ratio 11.8 TR Peak Velocity 339.9 cm/s TR Peak Gradient 46.2 mmHg TR Mean Velocity 319.3 cm/s TR Mean Gradient 40.1 mmHg TR Velocity Time Integral 134.3 cm TV Peak E Velocity 60.0 cm/s Right Atrial Pressure 3.0 mmHg Pulmonary Artery Systolic Pressu 49.2 mmHg PV Peak Velocity 108.0 cm/s RV Acceleration Time 0.1 s RV Ejection Time 0.3 s RV AcT/ET 0.2 FINDINGS Left Ventricle Normal LV size with reduced ejection fraction of 45%. Diffuse hypokinesis of the LV apex. Mild concentric left ventricular hypertrophy.Grade I/IV diastolic dysfunction (abnormal relaxation filling pattern), normal to mildly elevated filling pressures. Right Ventricle The right ventricle is normal in size and function. Right Atrium The right atrium is normal in size. Left Atrium The left atrium is normal in size. Mitral Valve Trace to mild mitral valve regurgitation. Aortic Valve Thickened aortic valve. Tricuspid Valve Mild tricuspid valve regurgitation. Pulmonic Valve Pulmonic valve not well visualized. Pericardium Normal pericardium without effusion. Aorta Normal aortic annulus size. IVC Normal inferior vena cava. CONCLUSIONS Normal LV size with reduced ejection fraction of 45%. Diffuse hypokinesis of the LV apex. Mild concentric left ventricular hypertrophy.Grade I/IV diastolic dysfunction (abnormal relaxation filling pattern), normal to mildly elevated filling pressures. Trace to mild mitral valve regurgitation. Thickened aortic valve. Mild tricuspid valve regurgitation. Estimated pulmonary artery peak systolic pressure 49 mmHg There is no pericardial effusion. There are no intracardiac masses. Compared to the study from 04/06/2021, there may not be a significant change Dr Rosemary Kline MD [facility] (Electronically Signed) Final Date: 08 February 2022 19:18 S
== END 2022-02-04 13:45 | disposition home or self-care (01) ==
LOC: RAD 13:45
PROVIDERS: PCP Electrodiagnostic Medicine; Visit Provider Internal Medicine Cardiovascular Disease
DX: I25.5 Ischemic cardiomyopathy (principal); I42.0 Dilated cardiomyopathy; R06.00 Dyspnea, unspecified; I08.3 Combined rheumatic disorders of mitral, aortic and tricuspid valves
CPT/HCPCS: 93306

== ENCOUNTER → 2022-03-19 17:26 | Outpatient (BNVA) | payer OTHER, SELFPAY | PROVIDERS: PCP Electrodiagnostic Medicine; Visit Provider Registered Nurse Neonatal Intensive Care | DX: Z20.822 Contact with and (suspected) exposure to COVID-19 (principal) | CPT/HCPCS: 87426 ==

== ENCOUNTER 2023-01-06 08:53 | Outpatient (CLI) | payer MEDICAID, SELFPAY ==
--- NOTE | 2023-01-06 09:30 | CT_ITS ---
WS: [id number] LDCT LUNG CANCER SCREENING TECHNIQUE: Noncontrast CT of the chest with coronal and sagittal reformatted images. CLINICAL INFORMATION: screen COMPARISON: 2020 DLP: 73.70 mGy.cm DIvol: Mean CTDIvol: 1.40 (mGy) All CT scans at [facility] use at least one of these dose optimization techniques: automat ed exposure control; mA and/or kV adjustment per patient size (includes targeted exams where dose is matched to clinical indication); or iterative reconstruction. FINDINGS:Tiny nodule RIGHT lower lobe measuring 3 mm is unchanged. A few calcified granulomas. Tiny n odule LEFT lower lobe. Tiny 2 mm nodule RIGHT lung apex. No suspicious pulmonary opacities. Moderate chronic emphysematous changes. No focal pneumonia or pleural fluid. Calcified mediastinal an d hilar lymph nodes. Coronary calcification. Coronary stent. No axillary lymphadenopathy. Cholelithia sis better visualized on prior study.Tiny LEFT adrenal adenoma. RIGHT adrenal gland is normal. Mild thoracic kyphosis. Hypertrophic changes thoracic spine. CT/CT lung screening [id number] IMPRESSION: LUNG-RADS: 2-Benign Appearance or Behavior FOLLOW UP: 12 Month: Continue annual screening with LDCT
== END 2023-01-06 08:54 | disposition home or self-care (01) ==
PROVIDERS: PCP Family Medicine; Visit Provider Family Medicine
DX: Z12.2 Encounter for screening for malignant neoplasm of respiratory organs (principal); F17.219 Nicotine dependence, cigarettes, with unspecified nicotine-induced disorders
CPT/HCPCS: 71271; 80053; 80061; 84153; 84443; 85025

== ENCOUNTER → 2023-07-04 16:11 | Outpatient (BNVA) | payer MEDICAID, SELFPAY | PROVIDERS: PCP Family Medicine; Visit Provider Internal Medicine Cardiovascular Disease | DX: R07.9 Chest pain, unspecified (principal); I25.5 Ischemic cardiomyopathy; I42.0 Dilated cardiomyopathy | CPT/HCPCS: 93005 ==

== ENCOUNTER → 2024-01-03 10:22 | Outpatient (BNVA) | payer MEDICAID, SELFPAY | PROVIDERS: PCP Family Medicine Adult Medicine; Visit Provider Internal Medicine Cardiovascular Disease | DX: I25.5 Ischemic cardiomyopathy (principal); R06.02 Shortness of breath; I42.0 Dilated cardiomyopathy; I25.10 Atherosclerotic heart disease of native coronary artery without angina pectoris | CPT/HCPCS: 36415; 80048; 83880; 93005 ==

== ENCOUNTER 2024-01-15 13:34 | Outpatient (CLI) | payer MEDICAID, SELFPAY ==
--- NOTE | 2024-01-15 14:15 | USCV_ITS ---
Tera Chirinos Age: 63 Gender: M : 1960 Exam Date: 01/15/2024 13:50 Ordering Phys: Rosemary Kline MD ([email or web address]) Technologist: Exam Location: [facility] [place] Indication: hx of cad cardiac infarction BP: 120 / 74 HR: 436 Rhythm: Sinus Technical Quality: Adequate MEASUREMENTS (Male / Female) Normal Values 2D ECHO LV Diastolic Diameter PLAX 5.6 cm 4.2 - 5.9 / 3.9 - 5.3 cm IVS Diastolic Thickness 1.1 cm 0.6 - 1.0 / 0.6 - 0.9 cm IVS Systolic Thickness 1.7 cm LVPW Diastolic Thickness 1.1 cm 0.6 - 1.0 / 0.6 - 0.9 cm LVPW Systolic Thickness 1.7 cm LVOT Diameter 2.0 cm LV Ejection Fraction 2D Teich 57.6 % LV Ejection Fraction MOD 2C 64.8 % LV Ejection Fraction 2C AL 65.6 % LA Diameter 3.5 cm RA Systolic Volume 4C AL 24.3 ml RA Systolic Volume 4C MOD 25.2 ml Aorta at Sinotubular Diameter 2.8 cm M-MODE LA Ao Ratio MM 0.8 AV Cusp Separation MM 1.9 cm DOPPLER AV Peak Velocity 101.0 cm/s LVOT Peak Velocity 104.0 cm/s AV Area Cont Eq vti 4.1 cm squared AV Area Cont Eq pk 3.3 cm squared MV Peak Velocity 104.0 cm/s TV Peak Velocity 204.0 cm/s TR Peak Velocity 257.0 cm/s TR Peak Gradient 26.4 mmHg TV Peak E Velocity 96.0 cm/s Right Atrial Pressure 3.0 mmHg Pulmonary Artery Systolic Pressu 29.4 mmHg PV Peak Velocity 120.0 cm/s FINDINGS Left Ventricle Moderate concentric left hypertrophy with some evidence of mid cavity contraction. Hypokinetic apical septal segment. Ejection fraction of 67% Right Ventricle The right ventricle is normal in size and function. Right Atrium The right atrium is normal in size. Left Atrium Mildly increased left atrial size. Mitral Valve Mild mitral valve regurgitation. Aortic Valve Minimally thickened aortic valve Tricuspid Valve Mild tricuspid valve regurgitation. Estimated pulmonary artery peak systolic pressure 30 mmHg Pulmonic Valve No gross abnormalities noted Pericardium No pericardial effusion. Aorta Normal aortic annulus size. IVC Inferior vena cava not visualized. CONCLUSIONS Moderate concentric left hypertrophy with some evidence of mid cavity contraction. Hypokinetic apical septal segment. Ejection fraction of 67%. Mildly increased left atrial size. Mild mitral valve regurgitation. Mild tricuspid valve regurgitation. Estimated pulmonary artery peak systolic pressure 30 mmHg. There is no pericardial effusion. There are no intracardiac masses. Compared to the study from 02/04/2022, there is significant improvement in the LV ejection fraction from 45% to 67% Dr Rosemary Kline MD [facility] (Electronically Signed) Final Date: 16 January 2024 09:38 S
== END 2024-01-15 13:35 | disposition home or self-care (01) ==
LOC: RAD 13:34
PROVIDERS: PCP Family Medicine Adult Medicine; Visit Provider Internal Medicine Cardiovascular Disease
DX: I25.5 Ischemic cardiomyopathy (principal); I42.0 Dilated cardiomyopathy; I25.10 Atherosclerotic heart disease of native coronary artery without angina pectoris; I42.2 Other hypertrophic cardiomyopathy
CPT/HCPCS: 93306

== ENCOUNTER → 2024-11-28 11:19 | Outpatient (BNVA) | payer BC, MEDICARE, SELFPAY | PROVIDERS: PCP Family Medicine; Visit Provider Family Medicine | DX: I10 Essential (primary) hypertension (principal); I25.5 Ischemic cardiomyopathy; I42.0 Dilated cardiomyopathy; I25.119 Atherosclerotic heart disease of native coronary artery with unspecified angina pectoris; E78.5 Hyperlipidemia, unspecified; K21.9 Gastro-esophageal reflux disease without esophagitis; R25.2 Cramp and spasm; J43.1 Panlobular emphysema; Z12.5 Encounter for screening for malignant neoplasm of prostate | CPT/HCPCS: 80053; 80061; 84443; 85025; G0103 ==

== ENCOUNTER 2024-12-11 08:28 | Outpatient (CLI) | payer MEDICARE, SELFPAY ==
--- NOTE | 2024-12-11 09:00 | CT_ITS ---
WS: [id number] LDCT LUNG CANCER SCREENING HISTORY: smoker; 56pk year; screening TECHNIQUE: Axial imaging performed from the apices to 1 cm below the costophrenic angles. Coronal and sagittal reformats are submitted with axial MIP series. All CT scans at [facility] use at least one of these dose optimization techniques: automated exposure control; mA and/or kV adjustment per patient size (includes targeted exams where dose is matched to clinical indication); or iterative reconstruction. DLP: 73.01 mGy.cm DIvol: Mean CTDIvol: 1.60 (mGy) COMPARISON: 01/06/2023 Diagnostic quality: Satisfactory Lungs: Mild pulmonary hyperexpansion and centrilobular emphysema. Previously described tiny noncalcified 3 mm nodule in the RIGHT upper lobe is reidentified with no change. Partially calcified 8 mm short fissure nodule is stable. Heart: Normal size heart with no pericardial effusion.. Dense coronary artery calcifications. Other findings: Very mild atherosclerosis aorta. Heavily calcified RIGHT paratracheal lymph nodes. No adenopathy. Reidentified is a tiny LEFT adrenal adenoma. Normal RIGHT adrenal gland. Increased thoracic kyphosis. Hypertrophic osteophytes in the mid to lower thoracic spine. Mild anterior wedging of several lower thoracic vertebral bodies. CT/CT lung screening [id number] IMPRESSION: LUNG-RADS: 2-Benign Appearance or Behavior FOLLOW UP: 12 Month: Continue annual screening with LDCT OTHER FINDINGS (S MODIFIER): None.
== END 2024-12-11 08:29 | disposition home or self-care (01) ==
PROVIDERS: PCP Family Medicine; Visit Provider Family Medicine
DX: Z12.2 Encounter for screening for malignant neoplasm of respiratory organs (principal); F17.219 Nicotine dependence, cigarettes, with unspecified nicotine-induced disorders; R91.8 Other nonspecific abnormal finding of lung field; J43.2 Centrilobular emphysema; I25.10 Atherosclerotic heart disease of native coronary artery without angina pectoris; I70.0 Atherosclerosis of aorta; R59.0 Localized enlarged lymph nodes; M40.294 Other kyphosis, thoracic region; M25.78 Osteophyte, vertebrae; M48.54XA Collapsed vertebra, not elsewhere classified, thoracic region, initial encounter for fracture
CPT/HCPCS: 71271

== ENCOUNTER → 2025-03-10 13:35 | Outpatient (BNVA) | payer MEDICARE, SELFPAY | PROVIDERS: PCP Family Medicine; Visit Provider Student in an Organized Health Care Education/Training Program | DX: Z12.11 Encounter for screening for malignant neoplasm of colon (principal) | CPT/HCPCS: 99024; 99204 ==